=== PATIENT | female | born 1960 ===

== ENCOUNTER 2017-04-22 17:18 | Emergency (ER) | payer OTHER ==
--- NOTE | 2017-04-22 18:25 | ED NURSING NOTES ---
Clinical Report - Nurses [facility] [address] [place] [address] 04/22/2017 17:21 [id number] TRI[facility] Triage time 17:29 Apr 22 2017. Acuity: LEVEL 4. Chief Complaint: CHIPPED TOOTH. 17:34 04/22/17. Alert. No acute distress. SEPSIS SCREEN: Sepsis Screen. Negative (no infection suspected/documented). DESIREE COMA SCORE: Desiree Coma Scale: 15- eyes open spontaneously (4); best verbal response- oriented x 4 (5); best motor response- obeys commands (6). --17:34 Lubna Mas 17:34 04/22/17. BP: 121/84. HR: 94. RR: 17. O2 saturation: 97%. Temp: 98.5 F. Pain level now 9/10. --17:34 Lubna Mas. Weight: 58.9 kg stated. Height/Length: 61 inches Per Patient. BMI: 24.5. --17:33 Lubna Mas. Medications INHALER . --17:31 Lubna Mas. Medication/allergy information source: the patient. --17:34 Lubna Mas. Allergies Tylenol.(vomiting) --17:31 Lubna Mas. History Arrived by private vehicle. Historian: patient. Accompanied by son. Primary physician (Alina). Onset. (Two days ago). ( Pt reports she was going to go to emergency dentist tomorrow, but pain is too severe to make it to tomorrow. Has a known cracked tooth. Ear pain bilat. Generalized facial pain.). She has had mouth sores, facial pain, hoarseness and ear pain. She has had a toothache and swelling of the jaw. 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 PAST MEDICAL HX: Dental caries. Immunizations: up-to-date. SOCIAL HX: Heavy tobacco smoker (cigarette)- less than 1 pack per day. No alcohol use or drug use. FALL RISK ASSESSMENT: Fall risk assessment completed. No fall risk identified. NUTRITIONAL RISK ASSESSMENT: The nutritional risk assessment revealed no deficiencies. FUNCTIONAL ASSESSMENT: Functional assessment: no impairments noted. LEARNING NEEDS ASSESSMENT: The learning needs assessment revealed no barriers. SKIN INTEGRITY ASSESSMENT: Skin integrity risk assessment completed. No skin integrity risk identified. --17:34 Lubna Mas. PROBLEMS: Abscess. Immunizations. Arthritis. 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 --17:31 Lubna Mas. ADDITIONAL SURGERIES: Hysterectomy. Skin grafting. --17:31 Lubna Mas. Assessment The patient states feels the same. --17:34 Lubna Mas. Interventions ID band on patient. --17:34 Lubna Mas. PHYSICAL ASSESSMENT 17:34 04/22/17. Ambulatory to room. GENERAL / NEURO / PSYCH: Alert. Oriented X 4. Appears in no acute distress. HEENT: Pupils equal, round and reactive to light. No trouble handling secretions. Dental tenderness. Dental decay. Mucous membranes are pink. RESPIRATORY: Respirations not labored. CVS: Capillary refill less than 2 seconds. SKIN: Skin is warm and dry. Normal skin turgor. --17:35 Lubna Mas. NURSING PROGRESS NOTES 17:35 04/22/17. The plan of care for this patient has been created. Head of bed elevated. Reassurance given. Two patient identifiers checked. Call light placed in reach. Side rails up x 1. Bed placed in lowest position. Brakes of bed on. Patient ready for evaluation- chart flagged and ED physician notified. --17:35 Lubna Mas 17:57 04/22/2017 Penicillin V Potassium PO Tablets 500 mg given. Allergies verified and confirmed 5 rights. --18:02 Lubna Mas 17:57 04/22/2017 Motrin PO Tablets 600 mg given. Allergies verified and confirmed 5 rights. --18:02 Lubna Mas 18:03 04/22/2017 Lidocaine-Epinephrine (Lidocaine-Epinephrine) Injection Injectable 2 % given. (given to ERMD). --18:03 Lubna Mas 18:04 04/22/2017 Bupivacaine-Epinephrine (Bupivacaine-Epinephrine) Injection Injectable 0.5 % given. (Given to ERMD). --18:04 Lubna Mas. DISPOSITION / DISCHARGE 18:37 04/22/17. Departure time: 18:37 Apr 22 2017. Condition at departure: improved. The goals identified in the patient's plan of care were met. No learning barriers present. Discharge instructions provided and reviewed with the patient. Reviewed warnings (Patient verbalized understanding of sedation warning.). Reviewed medication(s) side effects, precautions, dosing and course information. Prescription(s) given to the patient (oxycodone, penicillin, motrin). Treatments reviewed. Reviewed referral to a dentist for followup. Patient verbalized understanding. Written instructions provided in Georgian. The patient was discharged by the physician. She was discharged home and accompanied by family. She left the Emergency Department ambulatory and via private vehicle. Family member driving. FALL RISK ASSESSMENT: Fall risk assessment completed. No fall risk identified. --18:37 Lubna Mas 18:37 04/22/17. BP: 121/81. HR: 91. RR: 14. O2 saturation: 97%. Temp: 98.2 F. Pain level now 0/10. --18:37 Lubna Mas 18:37 04/22/17. ( Patient verbalized importance of taking entire dose of ABO). --18:37 Lubna Mas. Locked/Released at 04/26/2017 13:00 by Lubna Mas,
--- NOTE | 2017-04-22 18:25 | ED CLINICAL REPORT ---
Clinical Report - Physicians/Mid Levels [facility] [address] [place] [address] 04/22/2017 17:21 Patient: MARCIE AU Time Seen: 1749. Arrived- By private vehicle. Historian- patient. HISTORY OF PRESENT ILLNESS Chief Complaint: DENTAL PAIN. This started past 2 days and is still present and worsening. It was abrupt in onset and has been constant but is not gone now. Pain described as moderate. The patient has had toothache. (states there was a small "pimple" on the gums. states it popped and pus came out.). Similar symptoms previously: None. Recent medical care: Not recently seen/assessed. REVIEW OF SYSTEMS No fever, cough, difficulty breathing, chest pain or nausea. All systems otherwise negative, except as recorded above. PAST HISTORY See nurses notes. Medications: INHALER . Allergies: Tylenol.(vomiting). SOCIAL HISTORY Smoker- current status unknown. No alcohol use or drug use. No recent travel. Is a local resident. ADDITIONAL NOTES The nursing notes have been reviewed. PHYSICAL EXAM Vital Signs: 04/22/2017 17:34 BP: 121/84. HR: 94. RR: 17. O2 saturation: 97%. Temp: 98.5 F. Blood pressure normal. Oxygen saturation normal. Appearance: Alert. No acute distress. Head: Normal external inspection. Eyes: Pupils equal, round and reactive to light. Conjunctivae and eyelids normal. ENT: Severe, extensive dental decay. Ears normal. Nose normal. Pharynx normal. Lips normal. No trismus present. Uvula midline. (small spontaneous draining abscess to the left lateral mandible. No crepitus. No bony abnormalities.). No trismus. (no signs of ANUG. no brawny edema). Neck: Normal inspection. Trachea midline. No adenopathy. Thyroid normal. Neck supple. (no stridor). CVS: Normal heart rate and rhythm. Heart sounds normal. Pulses normal. Respiratory: No respiratory distress. Breath sounds normal. Chest nontender. Abdomen: Soft and nontender. No organomegaly. Skin: Normal skin color. No rash. Normal skin turgor. Extremities: Extremities exhibit normal ROM. Extremities nontender. PROGRESS AND PROCEDURES Dental Nerve Block: Inferior Alveolar Block. Procedure performed on the left side. Landmarks were identified. Topical anesthetic applied. Total volume of 4 mL 1% Lidocaine and 0.5% Marcaine infiltrated using a 27-gauge needle. Patient cooperative during procedure. No complications encountered. Excellent anesthesia achieved. Course of Care: the patient is a pleasant 57 her old female apparently past medical history presenting for evaluation of left-sided dental pain. Patient has a spontaneous draining abscess. No further purulent material could be expressed from the wound. No signs of more sinister type of infection at this time. After reviewing the risks and benefits of a dental block, patient was agreeable to the procedure. Patient appears nontoxic and is in no acute distress. Tetanus is up-to-date. Dental block was performed. Patient achieved excellent analgesia. First dose of her antibiotics are provided here in the emergency department today. Discussed with the patient her workup here in the emergency department including her diagnosis, home care, follow-up, and return precautions. All questions have been answered. The patient expressed understanding of these instructions and was agreeable to them. Disposition: Discharged. Condition: good. CLINICAL IMPRESSION 04/22/2017 17:34 BP: 121/84. HR: 94. RR: 17. O2 saturation: 97%. Temp: 98.5 F. Blood pressure normal. Oxygen saturation normal. Periapical dental abscess (acute left mandible). acute left facial pain. INSTRUCTIONS Warnings: GENERAL WARNINGS: Return or contact your physician immediately if your condition worsens or changes unexpectedly, if not improving as expected, or if other problems arise. Specifically return if pain, vomiting, bleeding, breathing difficulty or fever. Your Current Medications: CONTINUE TAKING THE FOLLOWING MEDICATIONS: INHALER *. Prescription Medications: Penicillin V 500 mg: take 1 tab orally every 12 hours for 10 days. Dispense twenty (20). No refills. (disp 20 tabs) Oxycodone 5 mg tablets: take 1 orally every 6 hours as needed for pain. Dispense ten (10). No refill. OTC Medications: Motrin (available over the counter): take according to label instructions. Follow-up: Return to the emergency department as needed. Follow up with a dentist. Reason for referral: as soon as possible. ideally in < 3 days. Summary of care provided to patient via paper. Follow up with your doctor in three days. Reason for referral: recheck today's concerns. Screening today revealed the patient's blood pressure to be in the normal range. The patient should follow up with a primary care provider for blood pressure management. Understanding of the discharge instructions verbalized by patient. (Electronically signed by Kings Campos Dr. 04/22/2017 18:34)
--- NOTE | 2017-04-22 18:25 | ED NURSING NOTES ---
Clinical Report - Nurses [facility] [address] [place] [address] 04/22/2017 17:21 [id number] Triage time 17:29 Apr 22 2017. Acuity: LEVEL 4. Chief Complaint: CHIPPED TOOTH. 17:34 04/22/17. Alert. No acute distress. SEPSIS SCREEN: Sepsis Screen. Negative (no infection suspected/documented). DESIREE COMA SCORE: Desiree Coma Scale: 15- eyes open spontaneously (4); best verbal response- oriented x 4 (5); best motor response- obeys commands (6). --17:34 Lubna Mas 17:34 04/22/17. BP: 121/84. HR: 94. RR: 17. O2 saturation: 97%. Temp: 98.5 F. Pain level now 9/10. --17:34 Lubna Mas. Weight: 58.9 kg stated. Height/Length: 61 inches Per Patient. BMI: 24.5. --17:33 Lubna Mas. Medications INHALER . --17:31 Lubna Mas. Medication/allergy information source: the patient. --17:34 Lubna Mas. Allergies Tylenol.(vomiting) --17:31 Lubna Mas. History Arrived by private vehicle. Historian: patient. Accompanied by son. Primary physician (Alina). Onset. (Two days ago). ( Pt reports she was going to go to emergency dentist tomorrow, but pain is too severe to make it to tomorrow. Has a known cracked tooth. Ear pain bilat. Generalized facial pain.). She has had mouth sores, facial pain, hoarseness and ear pain. She has had a toothache and swelling of the jaw. 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 PAST MEDICAL HX: Dental caries. Immunizations: up-to-date. SOCIAL HX: Heavy tobacco smoker (cigarette)- less than 1 pack per day. No alcohol use or drug use. FALL RISK ASSESSMENT: Fall risk assessment completed. No fall risk identified. NUTRITIONAL RISK ASSESSMENT: The nutritional risk assessment revealed no deficiencies. FUNCTIONAL ASSESSMENT: Functional assessment: no impairments noted. LEARNING NEEDS ASSESSMENT: The learning needs assessment revealed no barriers. SKIN INTEGRITY ASSESSMENT: Skin integrity risk assessment completed. No skin integrity risk identified. --17:34 Lubna Mas. PROBLEMS: Abscess. Immunizations. Arthritis. 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 --17:31 Lubna Mas. ADDITIONAL SURGERIES: Hysterectomy. Skin grafting. --17:31 Lubna Mas. Assessment The patient states feels the same. --17:34 Lubna Mas. Interventions ID band on patient. --17:34 Lubna Mas. PHYSICAL ASSESSMENT 17:34 04/22/17. Ambulatory to room. GENERAL / NEURO / PSYCH: Alert. Oriented X 4. Appears in no acute distress. HEENT: Pupils equal, round and reactive to light. No trouble handling secretions. Dental tenderness. Dental decay. Mucous membranes are pink. RESPIRATORY: Respirations not labored. CVS: Capillary refill less than 2 seconds. SKIN: Skin is warm and dry. Normal skin turgor. --17:35 Lubna Mas. NURSING PROGRESS NOTES 17:35 04/22/17. The plan of care for this patient has been created. Head of bed elevated. Reassurance given. Two patient identifiers checked. Call light placed in reach. Side rails up x 1. Bed placed in lowest position. Brakes of bed on. Patient ready for evaluation- chart flagged and ED physician notified. --17:35 Lubna Mas 17:57 04/22/2017 Penicillin V Potassium PO Tablets 500 mg given. Allergies verified and confirmed 5 rights. --18:02 Lubna Mas 17:57 04/22/2017 Motrin PO Tablets 600 mg given. Allergies verified and confirmed 5 rights. --18:02 Lubna Mas 18:03 04/22/2017 Lidocaine-Epinephrine (Lidocaine-Epinephrine) Injection Injectable 2 % given. (given to ERMD). --18:03 Lubna Mas 18:04 04/22/2017 Bupivacaine-Epinephrine (Bupivacaine-Epinephrine) Injection Injectable 0.5 % given. (Given to ERMD). --18:04 Lubna Mas. DISPOSITION / DISCHARGE 18:37 04/22/17. Departure time: 18:37 Apr 22 2017. Condition at departure: improved. The goals identified in the patient's plan of care were met. No learning barriers present. Discharge instructions provided and reviewed with the patient. Reviewed warnings (Patient verbalized understanding of sedation warning.). Reviewed medication(s) side effects, precautions, dosing and course information. Prescription(s) given to the patient (oxycodone, penicillin, motrin). Treatments reviewed. Reviewed referral to a dentist for followup. Patient verbalized understanding. Written instructions provided in Tajik. The patient was discharged by the physician. She was discharged home and accompanied by family. She left the Emergency Department ambulatory and via private vehicle. Family member driving. FALL RISK ASSESSMENT: Fall risk assessment completed. No fall risk identified. --18:37 Lubna Mas 18:37 04/22/17. BP: 121/81. HR: 91. RR: 14. O2 saturation: 97%. Temp: 98.2 F. Pain level now 0/10. --18:37 Lubna Mas 18:37 04/22/17. ( Patient verbalized importance of taking entire dose of ABO). --18:37 Lubna Mas. Locked/Released at 04/26/2017 13:00 by Lubna Mas,
--- NOTE | 2017-04-22 18:25 | ED ORDER SUMMARY ---
..... Patient: MARCIE AU OrderSheet [facility] VisitID: [id number] [place] [address] 57y, F Registration Date/Time: 04/22/2017 ORDER SHEET Weight: 58.9 kg (stated) Allergies: Tylenol GENERAL ORDERS: MEDICATION ORDERS: Penicillin V Potassium PO 500 mg (NOW) (17:53 04/22/2017 Amanda Dean) (Ack 17:55 ASchmuck) (18:02 ASchmuck) Motrin PO 600 mg (NOW) (17:53 04/22/2017 Amanda Dean) (Ack 17:55 ASchmuck) (18:02 ASchmuck) Lidocaine-Epinephrine Injection 1% (place at bedside) (17:54 04/22/2017 Amanda Dean) (Ack 17:55 ASchmuck) (18:03 ASchmuck) Bupivacaine-Epinephrine Injection 0.5 % (soln) (bedside) (17:54 04/22/2017 Amanda Dean) (Ack 17:55 ASchmuck) (18:04 ASchmuck) IV FLUIDS: ORDER SHEET NOTES: [Electronically signed by Kings Campos Dr. (18:34 04/22/2017)] [Electronically signed by Lubna Mas (13:00 04/26/2017)] [Electronically locked/signed by Lubna Mas (13:00 04/26/2017)]
--- NOTE | 2017-04-22 18:25 | ED ORDER SUMMARY ---
..... Patient: MARCIE AU OrderSheet [facility] VisitID: [id number] [place] [address] 57y, F Registration Date/Time: 04/22/2017 ORDER SHEET Weight: 58.9 kg (stated) Allergies: Tylenol GENERAL ORDERS: MEDICATION ORDERS: Penicillin V Potassium PO 500 mg (NOW) (17:53 04/22/2017 Amanda Dean) (Ack 17:55 ASchmuck) (18:02 ASchmuck) Motrin PO 600 mg (NOW) (17:53 04/22/2017 Amanda Dean) (Ack 17:55 ASchmuck) (18:02 ASchmuck) Lidocaine-Epinephrine Injection 1% (place at bedside) (17:54 04/22/2017 Amanda Dean) (Ack 17:55 ASchmuck) (18:03 ASchmuck) Bupivacaine-Epinephrine Injection 0.5 % (soln) (bedside) (17:54 04/22/2017 Amanda Dean) (Ack 17:55 ASchmuck) (18:04 ASchmuck) IV FLUIDS: ORDER SHEET NOTES: [Electronically signed by Kings Campos Dr. (18:34 04/22/2017)] [Electronically signed by Lubna Mas (13:00 04/26/2017)] [Electronically locked/signed by Lubna Mas (13:00 04/26/2017)]
--- NOTE | 2017-04-26 13:00 | ED MAR SUMMARY ---
..... Medication Administration Record [facility] [address] [place] [address] Patient: MARCIE AU Visit ID: [id number] 57y, F Weight: 58.9 kg Height/Length: 61 in BMI: 24.5 ALLERGIES: Tylenol Given 17:04/22/2017 Lubna Mas, Medication Administered: PENICILLIN V POTASSIUM [PO], Dose: 500 mg Tablets PO. Medication Ordered: Penicillin V Potassium PO 500 mg (NOW). Given 17:04/22/2017 Lubna Mas, Medication Administered: MOTRIN [PO], Dose: 600 mg Tablets PO. Medication Ordered: Motrin PO 600 mg (NOW). Given 18:04/22/2017 Lubna Mas, Medication Administered: LIDOCAINE-EPINEPHRINE [INJECTION] (LIDOCAINE-EPINEPHRINE), Dose: 2 % Injectable Injection. Medication Ordered: Lidocaine-Epinephrine Injection 1% (place at bedside). Given 18:04/22/2017 Lubna Mas, Medication Administered: BUPIVACAINE-EPINEPHRINE [INJECTION] (BUPIVACAINE-EPINEPHRINE), Dose: 0.5 % Injectable Injection. Medication Ordered: Bupivacaine-Epinephrine Injection 0.5 % (soln) (bedside).
--- NOTE | 2017-04-26 13:00 | ED MED RECONCILIATION SUMMARY ---
Patient: MARCIE AU Medication Reconciliation Report [facility] VisitID: [id number] [place] [address] 57y, F Registration Date/Time: 04/22/2017 Weight: 58.9 kg Height/Length: 61 in. BMI: 24.5 ALLERGIES: Tylenol The patient's Home Medications are listed below: CONTINUE TAKING THE FOLLOWING MEDICATIONS: INHALER The source(s) of the original Home Medication information: patient The following Medications were given to the patient in the Emergency Department: Penicillin V Potassium [PO] PO 500 mg, administered: 04/22/2017 5:57:00 PM Motrin [PO] PO 600 mg, administered: 04/22/2017 5:57:00 PM Lidocaine-Epinephrine [Injection] Injection 2 %, administered: 04/22/2017 6:03:00 PM Bupivacaine-Epinephrine [Injection] Injection 0.5 %, administered: 04/22/2017 6:04:00 PM The following Medications were prescribed to the patient: Motrin (available over the counter): take according to label instructions. -- Kings Campos Dr. Penicillin V 500 mg: take 1 tab orally every 12 hours for 10 days. Dispense twenty (20). No refills.(disp 20 tabs) -- Kings Campos Dr. Oxycodone 5 mg tablets: take 1 orally every 6 hours as needed for pain. Dispense ten (10). No refill. -- Kings Campos Dr.
--- NOTE | 2017-04-26 13:00 | ED MED RECONCILIATION SUMMARY ---
Patient: MARCIE AU Medication Reconciliation Report [facility] VisitID: [id number] [place] [address] 57y, F Registration Date/Time: 04/22/2017 Weight: 58.9 kg Height/Length: 61 in. BMI: 24.5 ALLERGIES: Tylenol The patient's Home Medications are listed below: CONTINUE TAKING THE FOLLOWING MEDICATIONS: INHALER The source(s) of the original Home Medication information: patient The following Medications were given to the patient in the Emergency Department: Penicillin V Potassium [PO] PO 500 mg, administered: 04/22/2017 5:57:00 PM Motrin [PO] PO 600 mg, administered: 04/22/2017 5:57:00 PM Lidocaine-Epinephrine [Injection] Injection 2 %, administered: 04/22/2017 6:03:00 PM Bupivacaine-Epinephrine [Injection] Injection 0.5 %, administered: 04/22/2017 6:04:00 PM The following Medications were prescribed to the patient: Motrin (available over the counter): take according to label instructions. -- Kings Campos Dr. Penicillin V 500 mg: take 1 tab orally every 12 hours for 10 days. Dispense twenty (20). No refills.(disp 20 tabs) -- Kings Campos Dr. Oxycodone 5 mg tablets: take 1 orally every 6 hours as needed for pain. Dispense ten (10). No refill. -- Kings Campos Dr.
--- NOTE | 2017-04-26 13:00 | ED DISCHARGE INSTRUCTIONS ---
Patient: MARCIE AU General Instructions [facility] VisitID: [id number] [place] [address] 57y, F Registration Date/Time: 04/22/2017 04/22/2017 17:34 BP: 121/84. HR: 94. RR: 17. O2 saturation: 97%. Temp: 98.5 F. Blood pressure normal. Oxygen saturation normal. Periapical dental abscess (acute left mandible). acute left facial pain. INSTRUCTIONS Warnings: GENERAL WARNINGS: Return or contact your physician immediately if your condition worsens or changes unexpectedly, if not improving as expected, or if other problems arise. Specifically return if pain, vomiting, bleeding, breathing difficulty or fever. Your Current Medications: CONTINUE TAKING THE FOLLOWING MEDICATIONS: INHALER *. Prescription Medications: Penicillin V 500 mg: take 1 tab orally every 12 hours for 10 days. Dispense twenty (20). No refills. (disp 20 tabs) Oxycodone 5 mg tablets: take 1 orally every 6 hours as needed for pain. Dispense ten (10). No refill. OTC Medications: Motrin (available over the counter): take according to label instructions. Follow-up: Return to the emergency department as needed. Follow up with a dentist. Reason for referral: as soon as possible. ideally in < 3 days. Summary of care provided to patient via paper. Follow up with your doctor in three days. Reason for referral: recheck today's concerns. Screening today revealed the patient's blood pressure to be in the normal range. The patient should follow up with a primary care provider for blood pressure management. Understanding of the discharge instructions verbalized by patient. ADDITIONAL INFORMATION Dental Abscess A dental abscess is an infection of the tooth socket. It often starts with a crack or cavity in the tooth. A pocket of pus forms between the tooth and the bone. The infection causes pain and swelling of the gum, cheek or jaw. The pain is often made worse by drinking hot or cold fluids, or biting on hard foods. Pain may be felt in the facial sinus or in the ear. A severe infection can interfere with swallowing and breathing. In the emergency department or clinic, you will be started on an antibiotic. However, final treatment requires drainage of the pus. This can be done by removing the tooth or performing a root canal. A root canal is done by an oral surgeon and involves drilling an opening in the tooth to drain the pus. After the infection has healed, a crown is placed over the tooth. Home care The following guidelines will help you care for your abscess at home: Avoid hot and cold foods and liquids since your tooth may be sensitive to temperature changes. If your tooth is chipped or cracked, or if there is a large open cavity, applyoil of cloves(available [id number]-[id number] in drug stores) directly to the tooth to reduce pain. Some pharmacies carry an [id number] "toothache kit". This contains oil of cloves and a paste, which can be applied over the exposed tooth to decrease sensitivity. Apply an ice pack (ice cubes in a plastic bag, wrapped in a towel) over the injured area for 20 minutes every 12 hours the first day for pain relief. Continue this 34 times a day until the pain and swelling goes away. You may use acetaminophen or ibuprofen to control pain, unless another medicine was prescribed. If you have chronic liver or kidney disease or ever had a stomach ulcer or GI bleeding, talk with your doctor before using these medicines. An antibiotic will be prescribed. Take it as directed until completed, even if you are feeling better sooner. Follow-up care Follow up as directed with a dentist or oral surgeon. Even though your pain may improve with the treatment given today, only a dentist or oral surgeon can provide full treatment for this problem. When to seek medical care Get prompt medical attention or contact your doctor if any of the following occur: Your face or eyelid becomes swollen or red Pain worsens or spreads to the neck Fever over 100.4F (38.0C) Unusual drowsiness; headache or stiff neck; weakness, or fainting Pus drains from the gum or tooth Difficulty talking, swallowing or breathing Unable to open your mouth wide Penicillin V Potassium Oral tablet What is this medicine? PENICILLIN V (pen i SILL in V) is a penicillin antibiotic. It is used to treat certain kinds of bacterial infections. It will not work for colds, flu, or other viral infections. How should I use this medicine? Take this medicine by mouth with a full glass of water. Follow the directions on the prescription label. Take your medicine at regular intervals. Do not take your medicine more often than directed. Take all of your medicine as directed even if you think your are better. Do not skip doses or stop your medicine early. Talk to your truck rental service attendant regarding the use of this medicine in children. While this drug may be prescribed for selected conditions, precautions do apply. What side effects may I notice from receiving this medicine? Side effects that you should report to your doctor or health critical care transport nurse as soon as possible: allergic reactions like skin rash or hives, swelling of the face, lips, or tongue breathing problems fever new symptoms of infection redness, blistering, peeling or loosening of the skin, including inside the mouth unusually weak or tired Side effects that usually do not require medical attention (report to your doctor or health critical care transport nurse if they continue or are bothersome): diarrhea headache nausea, vomiting sore mouth or tongue stomach upset What may interact with this medicine? control pills methotrexate other antibiotics probenecid some vaccines What if I miss a dose? If you miss a dose, take it as soon as you can. If it is almost time for your next dose, take only that dose. Do not take double or extra doses. Where should I keep my medicine? Keep out of the reach of children. Store at room temperature between 15 and 30 degrees C (59 and 86 degrees F). Keep container tightly closed. Throw away any unused medicine after the expiration date. What should I tell my health care provider before I take this medicine? They need to know if you have any of these conditions: asthma bowel disease, like colitis eczema kidney disease an unusual or allergic reaction to penicillin, cephalosporins, other antibiotics or medicines, foods, tartrazine or other dyes, or preservatives or trying to get breast-feeding What should I watch for while using this medicine? Tell your doctor or health critical care transport nurse if your symptoms do not improve. Do not treat diarrhea with over the counter products. Contact your doctor if you have diarrhea that lasts more than 2 days or if it is severe and watery. If you have diabetes, you may get a false-positive result for sugar in your urine. Check with your doctor or health critical care transport nurse. control pills may not work properly while you are taking this medicine. Talk to your doctor about using an extra method of control. Oxycodone Hydrochloride, Acetaminophen Oral tablet What is this medicine? ACETAMINOPHEN; OXYCODONE (a set a DWAYNE sofi fen; ox i KOE done) is a pain reliever. It is used to treat mild to moderate pain. How should I use this medicine? Take this medicine by mouth with a full glass of water. Follow the directions on the prescription label. Take your medicine at regular intervals. Do not take your medicine more often than directed. Talk to your truck rental service attendant regarding the use of this medicine in children. Special care may be needed. Patients over 65 years old may have a stronger reaction and need a smaller dose. What side effects may I notice from receiving this medicine? Side effects that you should report to your doctor or health critical care transport nurse as soon as possible: allergic reactions like skin rash, itching or hives, swelling of the face, lips, or tongue breathing difficulties, wheezing confusion light headedness or fainting spells severe stomach pain yellowing of the skin or the whites of the eyes Side effects that usually do not require medical attention (report to your doctor or health critical care transport nurse if they continue or are bothersome): dizziness drowsiness nausea vomiting What may interact with this medicine? alcohol antihistamines barbiturates like amobarbital, butalbital, butabarbital, methohexital, pentobarbital, phenobarbital, thiopental, and secobarbital benztropine drugs for bladder problems like solifenacin, trospium, oxybutynin, tolterodine, hyoscyamine, and methscopolamine drugs for breathing problems like ipratropium and tiotropium drugs for certain stomach or intestine problems like propantheline, homatropine methylbromide, glycopyrrolate, atropine, belladonna, and dicyclomine general anesthetics like etomidate, ketamine, nitrous oxide, propofol, desflurane, enflurane, halothane, isoflurane, and sevoflurane medicines for depression, anxiety, or psychotic disturbances medicines for sleep muscle relaxants naltrexone narcotic medicines (opiates) for pain phenothiazines like perphenazine, thioridazine, chlorpromazine, mesoridazine, fluphenazine, prochlorperazine, promazine, and trifluoperazine scopolamine tramadol trihexyphenidyl What if I miss a dose? If you miss a dose, take it as soon as you can. If it is almost time for your next dose, take only that dose. Do not take double or extra doses. Where should I keep my medicine? Keep out of the reach of children. This medicine can be abused. Keep your medicine in a safe place to protect it from theft. Do not share this medicine with anyone. Selling or giving away this medicine is dangerous and against the law. Store at room temperature between 20 and 25 degrees C (68 and 77 degrees F). Keep container tightly closed. Protect from light. This medicine may cause accidental overdose and if it is taken by other adults, children, or pets. Flush any unused medicine down the toilet to reduce the chance of harm. Do not use the medicine after the expiration date. What should I tell my health care provider before I take this medicine? They need to know if you have any of these conditions: brain tumor Crohn's disease, inflammatory bowel disease, or ulcerative colitis drink more than 3 alcohol containing drinks per day drug abuse or addiction head injury heart or circulation problems kidney disease or problems going to the bathroom liver disease lung disease, asthma, or breathing problems an unusual or allergic reaction to acetaminophen, oxycodone, other opioid analgesics, other medicines, foods, dyes, or preservatives or trying to get breast-feeding What should I watch for while using this medicine? Tell your doctor or health critical care transport nurse if your pain does not go away, if it gets worse, or if you have new or a different type of pain. You may develop tolerance to the medicine. Tolerance means that you will need a higher dose of the medication for pain relief. Tolerance is normal and is expected if you take this medicine for a long time. Do not suddenly stop taking your medicine because you may develop a severe reaction. Your body becomes used to the medicine. This does NOT mean you are addicted. Addiction is a behavior related to getting and using a drug for a non-medical reason. If you have pain, you have a medical reason to take pain medicine. Your doctor will tell you how much medicine to take. If your doctor wants you to stop the medicine, the dose will be slowly lowered over time to avoid any side effects. You may get drowsy or dizzy. Do not drive, use machinery, or do anything that needs mental alertness until you know how this medicine affects you. Do not stand or sit up quickly, especially if you are an older patient. This reduces the risk of dizzy or fainting spells. Alcohol may interfere with the effect of this medicine. Avoid alcoholic drinks. There are different types of narcotic medicines (opiates) for pain. If you take more than one type at the same time, you may have more side effects. Give your health care provider a list of all medicines you use. Your doctor will tell you how much medicine to take. Do not take more medicine than directed. Call emergency for help if you have problems breathing. The medicine will cause constipation. Try to have a bowel movement at least every 2 to 3 days. If you do not have a bowel movement for 3 days, call your doctor or health critical care transport nurse. Do not take Tylenol (acetaminophen) or medicines that have acetaminophen with this medicine. Too much acetaminophen can be very dangerous. Many nonprescription medicines contain acetaminophen. Always read the labels carefully to avoid taking more acetaminophen. You have been given the following additional information: Tooth Abscess Penicillin V Potassium Oral tablet Oxycodone Hydrochloride, Acetaminophen Oral tablet (Electronically signed by Kings Campos Dr. 04/22/2017 18:34)
--- NOTE | 2017-04-26 13:00 | ED DISCHARGE INSTRUCTIONS ---
Patient: MARCIE AU General Instructions [facility] VisitID: [id number] [place] [address] 57y, F Registration Date/Time: 04/22/2017 04/22/2017 17:34 BP: 121/84. HR: 94. RR: 17. O2 saturation: 97%. Temp: 98.5 F. Blood pressure normal. Oxygen saturation normal. Periapical dental abscess (acute left mandible). acute left facial pain. INSTRUCTIONS Warnings: GENERAL WARNINGS: Return or contact your physician immediately if your condition worsens or changes unexpectedly, if not improving as expected, or if other problems arise. Specifically return if pain, vomiting, bleeding, breathing difficulty or fever. Your Current Medications: CONTINUE TAKING THE FOLLOWING MEDICATIONS: INHALER *. Prescription Medications: Penicillin V 500 mg: take 1 tab orally every 12 hours for 10 days. Dispense twenty (20). No refills. (disp 20 tabs) Oxycodone 5 mg tablets: take 1 orally every 6 hours as needed for pain. Dispense ten (10). No refill. OTC Medications: Motrin (available over the counter): take according to label instructions. Follow-up: Return to the emergency department as needed. Follow up with a dentist. Reason for referral: as soon as possible. ideally in < 3 days. Summary of care provided to patient via paper. Follow up with your doctor in three days. Reason for referral: recheck today's concerns. Screening today revealed the patient's blood pressure to be in the normal range. The patient should follow up with a primary care provider for blood pressure management. Understanding of the discharge instructions verbalized by patient. ADDITIONAL INFORMATION Dental Abscess A dental abscess is an infection of the tooth socket. It often starts with a crack or cavity in the tooth. A pocket of pus forms between the tooth and the bone. The infection causes pain and swelling of the gum, cheek or jaw. The pain is often made worse by drinking hot or cold fluids, or biting on hard foods. Pain may be felt in the facial sinus or in the ear. A severe infection can interfere with swallowing and breathing. In the emergency department or clinic, you will be started on an antibiotic. However, final treatment requires drainage of the pus. This can be done by removing the tooth or performing a root canal. A root canal is done by an oral surgeon and involves drilling an opening in the tooth to drain the pus. After the infection has healed, a crown is placed over the tooth. Home care The following guidelines will help you care for your abscess at home: Avoid hot and cold foods and liquids since your tooth may be sensitive to temperature changes. If your tooth is chipped or cracked, or if there is a large open cavity, applyoil of cloves(available [id number] in drug stores) directly to the tooth to reduce pain. Some pharmacies carry an [id number] "toothache kit". This contains oil of cloves and a paste, which can be applied over the exposed tooth to decrease sensitivity. Apply an ice pack (ice cubes in a plastic bag, wrapped in a towel) over the injured area for 20 minutes every 12 hours the first day for pain relief. Continue this 34 times a day until the pain and swelling goes away. You may use acetaminophen or ibuprofen to control pain, unless another medicine was prescribed. If you have chronic liver or kidney disease or ever had a stomach ulcer or GI bleeding, talk with your doctor before using these medicines. An antibiotic will be prescribed. Take it as directed until completed, even if you are feeling better sooner. Follow-up care Follow up as directed with a dentist or oral surgeon. Even though your pain may improve with the treatment given today, only a dentist or oral surgeon can provide full treatment for this problem. When to seek medical care Get prompt medical attention or contact your doctor if any of the following occur: Your face or eyelid becomes swollen or red Pain worsens or spreads to the neck Fever over 100.4F (38.0C) Unusual drowsiness; headache or stiff neck; weakness, or fainting Pus drains from the gum or tooth Difficulty talking, swallowing or breathing Unable to open your mouth wide Penicillin V Potassium Oral tablet What is this medicine? PENICILLIN V (pen i SILL in V) is a penicillin antibiotic. It is used to treat certain kinds of bacterial infections. It will not work for colds, flu, or other viral infections. How should I use this medicine? Take this medicine by mouth with a full glass of water. Follow the directions on the prescription label. Take your medicine at regular intervals. Do not take your medicine more often than directed. Take all of your medicine as directed even if you think your are better. Do not skip doses or stop your medicine early. Talk to your jewel bearing polisher regarding the use of this medicine in children. While this drug may be prescribed for selected conditions, precautions do apply. What side effects may I notice from receiving this medicine? Side effects that you should report to your doctor or health care clinician as soon as possible: allergic reactions like skin rash or hives, swelling of the face, lips, or tongue breathing problems fever new symptoms of infection redness, blistering, peeling or loosening of the skin, including inside the mouth unusually weak or tired Side effects that usually do not require medical attention (report to your doctor or health care clinician if they continue or are bothersome): diarrhea headache nausea, vomiting sore mouth or tongue stomach upset What may interact with this medicine? control pills methotrexate other antibiotics probenecid some vaccines What if I miss a dose? If you miss a dose, take it as soon as you can. If it is almost time for your next dose, take only that dose. Do not take double or extra doses. Where should I keep my medicine? Keep out of the reach of children. Store at room temperature between 15 and 30 degrees C (59 and 86 degrees F). Keep container tightly closed. Throw away any unused medicine after the expiration date. What should I tell my health care provider before I take this medicine? They need to know if you have any of these conditions: asthma bowel disease, like colitis eczema kidney disease an unusual or allergic reaction to penicillin, cephalosporins, other antibiotics or medicines, foods, tartrazine or other dyes, or preservatives or trying to get breast-feeding What should I watch for while using this medicine? Tell your doctor or health care clinician if your symptoms do not improve. Do not treat diarrhea with over the counter products. Contact your doctor if you have diarrhea that lasts more than 2 days or if it is severe and watery. If you have diabetes, you may get a false-positive result for sugar in your urine. Check with your doctor or health care clinician. control pills may not work properly while you are taking this medicine. Talk to your doctor about using an extra method of control. Oxycodone Hydrochloride, Acetaminophen Oral tablet What is this medicine? ACETAMINOPHEN; OXYCODONE (a set a DWAYNE sofi fen; ox i KOE done) is a pain reliever. It is used to treat mild to moderate pain. How should I use this medicine? Take this medicine by mouth with a full glass of water. Follow the directions on the prescription label. Take your medicine at regular intervals. Do not take your medicine more often than directed. Talk to your jewel bearing polisher regarding the use of this medicine in children. Special care may be needed. Patients over 65 years old may have a stronger reaction and need a smaller dose. What side effects may I notice from receiving this medicine? Side effects that you should report to your doctor or health care clinician as soon as possible: allergic reactions like skin rash, itching or hives, swelling of the face, lips, or tongue breathing difficulties, wheezing confusion light headedness or fainting spells severe stomach pain yellowing of the skin or the whites of the eyes Side effects that usually do not require medical attention (report to your doctor or health care clinician if they continue or are bothersome): dizziness drowsiness nausea vomiting What may interact with this medicine? alcohol antihistamines barbiturates like amobarbital, butalbital, butabarbital, methohexital, pentobarbital, phenobarbital, thiopental, and secobarbital benztropine drugs for bladder problems like solifenacin, trospium, oxybutynin, tolterodine, hyoscyamine, and methscopolamine drugs for breathing problems like ipratropium and tiotropium drugs for certain stomach or intestine problems like propantheline, homatropine methylbromide, glycopyrrolate, atropine, belladonna, and dicyclomine general anesthetics like etomidate, ketamine, nitrous oxide, propofol, desflurane, enflurane, halothane, isoflurane, and sevoflurane medicines for depression, anxiety, or psychotic disturbances medicines for sleep muscle relaxants naltrexone narcotic medicines (opiates) for pain phenothiazines like perphenazine, thioridazine, chlorpromazine, mesoridazine, fluphenazine, prochlorperazine, promazine, and trifluoperazine scopolamine tramadol trihexyphenidyl What if I miss a dose? If you miss a dose, take it as soon as you can. If it is almost time for your next dose, take only that dose. Do not take double or extra doses. Where should I keep my medicine? Keep out of the reach of children. This medicine can be abused. Keep your medicine in a safe place to protect it from theft. Do not share this medicine with anyone. Selling or giving away this medicine is dangerous and against the law. Store at room temperature between 20 and 25 degrees C (68 and 77 degrees F). Keep container tightly closed. Protect from light. This medicine may cause accidental overdose and if it is taken by other adults, children, or pets. Flush any unused medicine down the toilet to reduce the chance of harm. Do not use the medicine after the expiration date. What should I tell my health care provider before I take this medicine? They need to know if you have any of these conditions: brain tumor Crohn's disease, inflammatory bowel disease, or ulcerative colitis drink more than 3 alcohol containing drinks per day drug abuse or addiction head injury heart or circulation problems kidney disease or problems going to the bathroom liver disease lung disease, asthma, or breathing problems an unusual or allergic reaction to acetaminophen, oxycodone, other opioid analgesics, other medicines, foods, dyes, or preservatives or trying to get breast-feeding What should I watch for while using this medicine? Tell your doctor or health care clinician if your pain does not go away, if it gets worse, or if you have new or a different type of pain. You may develop tolerance to the medicine. Tolerance means that you will need a higher dose of the medication for pain relief. Tolerance is normal and is expected if you take this medicine for a long time. Do not suddenly stop taking your medicine because you may develop a severe reaction. Your body becomes used to the medicine. This does NOT mean you are addicted. Addiction is a behavior related to getting and using a drug for a non-medical reason. If you have pain, you have a medical reason to take pain medicine. Your doctor will tell you how much medicine to take. If your doctor wants you to stop the medicine, the dose will be slowly lowered over time to avoid any side effects. You may get drowsy or dizzy. Do not drive, use machinery, or do anything that needs mental alertness until you know how this medicine affects you. Do not stand or sit up quickly, especially if you are an older patient. This reduces the risk of dizzy or fainting spells. Alcohol may interfere with the effect of this medicine. Avoid alcoholic drinks. There are different types of narcotic medicines (opiates) for pain. If you take more than one type at the same time, you may have more side effects. Give your health care provider a list of all medicines you use. Your doctor will tell you how much medicine to take. Do not take more medicine than directed. Call emergency for help if you have problems breathing. The medicine will cause constipation. Try to have a bowel movement at least every 2 to 3 days. If you do not have a bowel movement for 3 days, call your doctor or health care clinician. Do not take Tylenol (acetaminophen) or medicines that have acetaminophen with this medicine. Too much acetaminophen can be very dangerous. Many nonprescription medicines contain acetaminophen. Always read the labels carefully to avoid taking more acetaminophen. You have been given the following additional information: Tooth Abscess Penicillin V Potassium Oral tablet Oxycodone Hydrochloride, Acetaminophen Oral tablet (Electronically signed by Kings Campos Dr. 04/22/2017 18:34)
--- NOTE | 2017-04-26 13:00 | ED MAR SUMMARY ---
..... Medication Administration Record [facility] [address] [place] [address] Patient: MARCIE AU Visit ID: [id number] 57y, F Weight: 58.9 kg Height/Length: 61 in BMI: 24.5 ALLERGIES: Tylenol Given 17:04/22/2017 Lubna Mas, Medication Administered: PENICILLIN V POTASSIUM [PO], Dose: 500 mg Tablets PO. Medication Ordered: Penicillin V Potassium PO 500 mg (NOW). Given 17:04/22/2017 Lubna Mas, Medication Administered: MOTRIN [PO], Dose: 600 mg Tablets PO. Medication Ordered: Motrin PO 600 mg (NOW). Given 18:04/22/2017 Lubna Mas, Medication Administered: LIDOCAINE-EPINEPHRINE [INJECTION] (LIDOCAINE-EPINEPHRINE), Dose: 2 % Injectable Injection. Medication Ordered: Lidocaine-Epinephrine Injection 1% (place at bedside). Given 18:04/22/2017 Lubna Mas, Medication Administered: BUPIVACAINE-EPINEPHRINE [INJECTION] (BUPIVACAINE-EPINEPHRINE), Dose: 0.5 % Injectable Injection. Medication Ordered: Bupivacaine-Epinephrine Injection 0.5 % (soln) (bedside).
== END 2017-04-22 18:39 | disposition home or self-care (01) ==
LOC: ED SRH 17:18
DX: K04.7 Periapical abscess without sinus (principal); R51 Headache; Z79.899 Other long term (current) drug therapy; Z88.5 Allergy status to narcotic agent